=== PATIENT | male | born 1975 ===

== ENCOUNTER 2023-04-29 23:41 | Inpatient (IN) | payer SELFPAY ==
[2023-04-29 23:37] LABS: BASOPHILS PERCENT AUTO 0.7 % (0.0-1.0); EOSINOPHILS PERCENT AUTO 1.3 % (1.0-3.0); HEMATOCRIT 43.7 % (40.0-54.0); HEMOGLOBIN 14.6 g/dL (14.0-18.0); LYMPHOCYTES PERCENT AUTO 37.8 % (20.5-50.1); MEAN CORPUSCULAR HEMOGLOBIN 32.7 pg (27.0-34.0); MEAN CORPUSCULAR HGB CONC 33.4 g/dL (33.0-35.0); MONOCYTES PERCENT AUTO 14.8 % (2-8); NEUTROPHILS PERCENT AUTO 45.4 % (42.2-75.2); PLATELET COUNT,PLT 106 10^3/uL (150-450); RED BLOOD CELL COUNT 4.46 10^6/uL (4.6-6.2); WHITE BLOOD CELL COUNT,WBC 8.9 10^3/uL (5.0-10.0)
[2023-04-30] LABS: PROTHROMBIN TIME 10.7 SEC (9.0-12.0); PTT,PARTIAL THROMBOPLSTIN TIME 26.2 SEC (22.0-34.0)
[2023-04-30 00:04] LABS: ALANINE AMINOTRANSFERASE,ALT 59 U/L (16-63); ALBUMIN 4.3 g/dL (3.4-5.0); ALKALINE PHOSPHATASE 166 U/L (46-116); ANION GAP 33.6 mEq/L (7-13); ASPARTATE AMNIOTRANSFERASE,AST 97 U/L (15-37); BILIRUBIN TOTAL 0.9 mg/dL (0.2-1.0); BLOOD UREA NITROGEN,BUN 7 mg/dL (7-18); BUN/CREATININE RATIO 5.6 (No establ ref range); CALCIUM 9.2 mg/dL (8.5-10.1); CARBON DIOXIDE,CO2 14 mmol/L (21-32); CHLORIDE,CL 97 mmol/L (98-107); CREATININE 1.26 mg/dL (0.70-1.30); ESTIMATED GFR 72 mL/min (>=60); ETHANOL BLOOD MEDICAL 105 mg/dL (0); GLUCOSE RANDOM 146 mg/dL (70-99); LIPASE 176 U/L (73-393); MAGNESIUM 1.6 mg/dL (1.8-2.4); POTASSIUM,K 3.6 mmol/L (3.5-5.1); PROTEIN TOTAL,TP 8.7 g/dL (6.4-8.2); SODIUM,NA 141 mmol/L (136-145)
[2023-04-30 00:05] LABS: C-REACTIVE PROTEIN < 0.2 mg/dL (0.0-0.9)
[2023-04-30 00:12] LABS: LACTIC ACID 16.8 mmol/L (0.4-2.0)
[2023-04-30] MEDS ORDERED: LORazepam 2 MG/ML SDV IVPUSH ONE (00:12)
[2023-04-30] MEDS ORDERED: Ondansetron 4 MG/2 ML SDV IVPUSH ONE (00:12)
[2023-04-30] MEDS ORDERED: MVI, Adult with Vitamin K 10 ML, Thiamine 100 MG, Folic Acid 1 MG in Lactated Ringers 1... IV ONE ×4 (00:14)
[2023-04-30] MEDS ORDERED: levETIRAcetam in NaCl (iso-os) 1,500 MG in Premix Bag 1 BAG IV ONE ×2 (00:14)
[2023-04-30] MEDS ORDERED: Magnesium Sulfate/Water 2 GM in Premix Bag 1 BAG IV ONE (01:05)
[2023-04-30] MEDS ORDERED: Acetaminophen 650 MG Supp RECTAL PRN (02:42)
[2023-04-30] MEDS ORDERED: Ibuprofen 600 MG Tab PO PRN (02:42)
[2023-04-30] MEDS ORDERED: Sodium Chloride 0.9% 10 ML Syringe FLUSH PRN (02:44)
[2023-04-30] MEDS ORDERED: Albuterol/Ipratropium 3.0-0.5 MG/3 ML Neb Soln NEB PRN (02:44)
[2023-04-30] MEDS ORDERED: Sennosides/Docusate Sodium 50-8.6 MG Tab PO PRN (02:44)
[2023-04-30] MEDS ORDERED: Naloxone 2 MG/2 ML Syringe IVPUSH PRN (02:44)
[2023-04-30] MEDS ORDERED: Acetaminophen/oxyCODONE 325-5 MG Tab PO PRN (02:44)
[2023-04-30] MEDS ORDERED: Ondansetron 4 MG/2 ML SDV IVPUSH PRN (02:44)
[2023-04-30] MEDS ORDERED: Polyethylene Glycol 3350 Powder 17 GM Packet PO PRN (02:44)
[2023-04-30] MEDS ORDERED: Magnesium Hydroxide 400 MG/5 ML Susp 30 ML Cup PO PRN (02:44)
[2023-04-30] MEDS ORDERED: cloNIDine 0.1 MG Tab PO PRN ×2 (02:46→19:59)
[2023-04-30] MEDS ORDERED: Diazepam 5 MG Tab PO PRN (02:46)
[2023-04-30] MEDS ORDERED: LORazepam 0.5 MG Tab PO PRN (02:46)
[2023-04-30] MEDS ORDERED: LORazepam 2 MG/ML SDV IVPUSH PRN (03:10)
[2023-04-30] MEDS ORDERED: Flumazenil 0.1 MG/ML 5 ML MDV IVPUSH PRN (03:10)
[2023-04-30] MEDS: Sodium Chloride 0.9% 1,000 ML IV SCH ×2 (03:23→17:31)
[2023-04-30] MEDS: LORazepam 2 MG/ML SDV IV PRN ×5 (03:37→14:38)
[2023-04-30] MEDS: hydrALAZINE 20 MG/ML SDV IVPUSH PRN ×2 (04:08→22:21)
[2023-04-30 04:09] LABS: AMPHETAMINES,URINE NEGATIVE (NEGATIVE); APPEARANCE,URINE CLEAR (CLEAR); BARBITURATES,URINE NEGATIVE (NEGATIVE); BENZODIAZEPINE,URINE NEGATIVE (NEGATIVE); BILIRUBIN,URINE NEGATIVE (NEGATIVE); COLOR,URINE YELLOW (YELLOW); GLUCOSE,URINE NEGATIVE (NEGATIVE); KETONES,URINE 40 (NEGATIVE); LEUKOCYTE ESTERASE,URINE NEGATIVE (NEGATIVE); MDMA (ECSTASY), URINE NEGATIVE (NEGATIVE); METHADONE,URINE NEGATIVE (NEGATIVE); METHAMPHETAMINES,URINE NEGATIVE (NEGATIVE); NITRITE,URINE NEGATIVE (NEGATIVE); OCCULT BLOOD,URINE MODERATE (NEGATIVE); OPIATES,URINE NEGATIVE (NEGATIVE); OXYCODONE,URINE NEGATIVE (NEGATIVE); PH,URINE 5.5 (5.0-9.0); PHENCYCLIDINE,URINE NEGATIVE (NEGATIVE); PROTEIN,URINE >=300 (NEGATIVE); TCA,URINE NEGATIVE (NEGATIVE); UROBILINOGEN,URINE 0.2 mg/dL (0.2-1.0)
[2023-04-30 04:16] LABS: BACTERIA,URINE FEW /HPF (0-FEW/HPF); EPITHELIAL CELLS,URINE FEW /HPF (NOT SEEN); GRANULAR CASTS,URINE RARE; HYALINE CASTS,URINE RARE; MUCUS,URINE FEW /LPF (NOT SEEN); WBC,URINE 0-5 /HPF (0-5/HPF)
[2023-04-30] MEDS ORDERED: Pantoprazole 40 MG Vial IVPUSH SCH (06:00)
[2023-04-30] MEDS: Metoprolol Tartrate 5 MG/5 ML SDV IVPUSH PRN (06:45)
[2023-04-30] MEDS: Sodium Chloride 0.9% 10 ML Syringe FLUSH SCH ×2 (08:27→22:20)
[2023-04-30] MEDS ORDERED: Multivitamin Tab PO SCH (09:00)
[2023-04-30] MEDS ORDERED: Gabapentin 400 MG Cap PO SCH (09:00)
[2023-04-30] MEDS ORDERED: MVI, Adult with Vitamin K 10 ML, Folic Acid 1 MG, Thiamine 100 MG in Lactated Ringers 1... IV ONE ×4 (16:19)
[2023-04-30] MEDS ORDERED: chlordiazePOXIDE 25 MG Cap PO ONE (17:46)
[2023-04-30] MEDS: HYDROmorphone 0.5 MG/0.5 ML Syringe IVPUSH PRN ×2 (19:58→22:08)
[2023-04-30] MEDS ORDERED: LORazepam 2 MG/ML SDV IV PRN (19:59)
[2023-04-30] MEDS ORDERED: Gabapentin 400 MG Cap PO ONE (20:00)
[2023-04-30] MEDS ORDERED: PHENobarbitaL sodium 260 MG in Sodium Chloride 0.9% 100 ML IV ONE (20:13)
[2023-04-30] MEDS ORDERED: Thiamine 100 MG Tab PO SCH (21:00)
[2023-04-30] MEDS ORDERED: Folic Acid 1 MG Tab PO SCH (21:00)
[2023-04-30] MEDS ORDERED: chlordiazePOXIDE 25 MG Cap PO SCH (21:00)
[2023-04-30] MEDS ORDERED: PHENobarbital Sodium 65 MG/ML SDV IVPUSH ONE (21:30)
[2023-04-30] MEDS: PHENobarbital Sodium 65 MG/ML SDV ONE (22:08)
[2023-05-01 06:21] LABS: BASOPHILS PERCENT AUTO 0.5 % (0.0-1.0); EOSINOPHILS PERCENT AUTO 0.8 % (1.0-3.0); HEMOGLOBIN 13.2 g/dL (14.0-18.0); LYMPHOCYTES PERCENT AUTO 12.3 % (20.5-50.1); MEAN CORPUSCULAR HEMOGLOBIN 32.4 pg (27.0-34.0); MEAN CORPUSCULAR HGB CONC 33.8 g/dL (33.0-35.0); MEAN CORPUSCULAR VOLUME 95.6 fL (80-100); MONOCYTES PERCENT AUTO 14.9 % (2-8); NEUTROPHILS PERCENT AUTO 71.5 % (42.2-75.2); PLATELET COUNT,PLT 64 10^3/uL (150-450); RED BLOOD CELL COUNT 4.08 10^6/uL (4.6-6.2); WHITE BLOOD CELL COUNT,WBC 6.2 10^3/uL (5.0-10.0)
[2023-05-01 06:42] LABS: ALBUMIN 3.3 g/dL (3.4-5.0); ANION GAP 13.2 mEq/L (7-13); BILIRUBIN TOTAL 1.3 mg/dL (0.2-1.0); BUN/CREATININE RATIO 7.1 (No establ ref range); CALCIUM 7.9 mg/dL (8.5-10.1); CREATININE 0.85 mg/dL (0.70-1.30); EST CRCL DRUG DOSING (CG) 102.61 mL/min; MAGNESIUM 1.4 mg/dL (1.8-2.4); POTASSIUM,K 3.2 mmol/L (3.5-5.1)
[2023-05-01 06:50] LABS: A/G RATIO 0.89
[2023-05-01] MEDS ORDERED: Sodium Chloride 0.9% 1,000 ML IV SCH (08:45)
[2023-05-01] MEDS ORDERED: chlordiazePOXIDE 25 MG Cap PO SCH ×2 (09:00)
[2023-05-01] MEDS: Sodium Chloride 0.9% 10 ML Syringe FLUSH SCH (09:42)
[2023-05-01] MEDS: PHENobarbital Sodium 65 MG/ML SDV ONE (10:01)
[2023-05-01] MEDS: hydrALAZINE 20 MG/ML SDV IVPUSH PRN (11:43)
[2023-05-01] MEDS: Metoprolol Tartrate 5 MG/5 ML SDV IVPUSH PRN (11:57)
[2023-05-01] MEDS ORDERED: Ketamine 500 mg/10 ML MDV IV ONE (13:41)
[2023-05-01] MEDS ORDERED: Succinylcholine 200 MG/10 ML MDV IV ONE (13:41)
[2023-05-01] MEDS ORDERED: Pantoprazole 40 MG in Sodium Chloride 0.9% 100 ML IV ONE (13:41)
[2023-05-01] MEDS ORDERED: Flumazenil 0.1 MG/ML 5 ML MDV IVPUSH ONE (13:41)
[2023-05-01] MEDS ORDERED: Sodium Chloride 0.9% 1,000 ML IV ONE (13:41)
[2023-05-01] MEDS ORDERED: Pantoprazole 40 MG in Sodium Chloride 0.9% 100 ML IV SCH (14:15)
[2023-05-01] MEDS ORDERED: Pantoprazole 80 MG in Sodium Chloride 0.9% 100 ML IV SCH (14:15)
[2023-05-01] MEDS ORDERED: Magnesium Sulfate/Water 2 GM in Premix Bag 1 BAG IV ONE (14:28)
[2023-05-01 14:37] LABS: O2 DELIVERY DEVICE VENTILATOR
[2023-05-01 14:38] LABS: BASE EXCESS ARTERIAL -4 mmol/L ((-2)-(+3)); BICARBONATE,ARTERIAL 20.5 mmol/L (22-26); O2 SATURATION ARTERIAL 96 % (95-100); PCO2 ARTERIAL 36 mmHg (35-45); PH,ARTERIAL 7.37 (7.35-7.45); PO2 ARTERIAL 78 mmHg (70-100)
[2023-05-01 14:39] LABS: ALLEN TEST positive
[2023-05-01] MEDS ORDERED: Piperacillin/Tazobactam 3.375 GM in Sodium Chloride 0.9% 100 ML IV SCH (14:45)
== END 2023-05-01 16:58 | DRG 896 ==
LOC: DL.ED 23:41 → DL.MS 04-30 02:05
PROVIDERS: ADMIT Internal Medicine; ATTEND Internal Medicine
PROC: 5A1935Z Respiratory Ventilation, Less than 24 Consecutive Hours (ICD-10-PCS; principal; 2023-04-30)
PROC: 0BH17EZ Insertion of Endotracheal Airway into Trachea, Via Natural or Artificial Opening (ICD-10-PCS; 2023-04-30)
DX: F10.231 Alcohol dependence with withdrawal delirium (principal); G93.41 Metabolic encephalopathy; E87.20 Acidosis, unspecified; D69.6 Thrombocytopenia, unspecified; E83.42 Hypomagnesemia; R73.9 Hyperglycemia, unspecified; E87.6 Hypokalemia; E87.8 Other disorders of electrolyte and fluid balance, not elsewhere classified; G93.89 Other specified disorders of brain; R56.9 Unspecified convulsions; Z79.899 Other long term (current) drug therapy
CPT/HCPCS: 36415; 36600; 51702; 70450; 71045; 80053; 80305-QW; 80307; 81001; 82803; 83605; 83690; 83735; 84443; 84484; 85025; 85379; 85610; 85730; 86140; 93005; 96365; 96368; 96375; 99284; 99285-25; A9270-GY; C9113; J0330; J0360; J1170; J1953; J2060; J2405; J2543; J2560; J3360; J3411; J3475; J3490; J7030; J7120